=== PATIENT | male | born 1990 | race Two or more races ===

== ENCOUNTER 2018-03-08 14:42 | Emergency (ER) | payer OTHER ==
[~2018-03-08] VITALS: Ht 154.9 cm; Wt 72.0 kg
[2018-03-08] MEDS ORDERED: KETOROLAC 30 MG/1 ML IVPush ONE (15:00)
[2018-03-08] MEDS ORDERED: ONDANSETRON ODT 4 MG PO ONE (15:00)
[2018-03-08] MEDS ORDERED: ONDANSETRON ODT 4 MG ONE (15:30)
[2018-03-08] MEDS ORDERED: KETOROLAC 30 MG/1 ML ONE (15:30)
[2018-03-08 15:38] LABS: MICROSCOPIC AUTO
[2018-03-08 15:39] LABS: CULTURE INDICATED? YES
[2018-03-08] MEDS ORDERED: MORPHINE SULFATE 4 MG/ML, 1ML ONE ×2 (15:39→16:47)
[2018-03-08] MEDS: MORPHINE SULFATE 4 MG/ML, 1ML IVPush PRN ×2 (15:40→16:49)
[2018-03-08 15:46] LABS: BASOPHILS # (AUTO) 0.03 x10^3/uL (0-0.1); BASOPHILS % (AUTO) 0 % (0-1); EOSINOPHILS # (AUTO) 0.02 x10^3/uL (0-0.4); EOSINOPHILS % (AUTO) 0 % (1-7); LYMPHOCYTES # (AUTO) 2.15 x10^3/uL (1-3.4); LYMPHOCYTES % (AUTO) 12 % (22-44); MD NO; MEAN CORPUSCULAR HEMOGLOBIN 30.7 pg (27.5-34.5); MEAN CORPUSCULAR HGB CONC 34.4 g/dL (33.2-36.2); MEAN CORPUSCULAR VOLUME 89.4 fL (81-97); MEAN PLATELET VOLUME 9.3 fL (7.4-10.4); MONOCYTES # (AUTO) 1.05 x10^3/uL (0.2-0.8); MONOCYTES % (AUTO) 6 % (2-9); NEUTROPHILS # (AUTO) 14.49 x10^3/uL (1.8-6.8); NEUTROPHILS % (AUTO) 82 % (42-75); PLATELET COUNT 266 x10^3/uL (130-400); RED BLOOD COUNT 5.42 x10^6/uL (4.38-5.82); RED CELL DISTRIBUTION WIDTH 12.2 % (9.4-14.8)
[2018-03-08 15:55] LABS: ALBUMIN 4.4 g/dL (3.4-5.0); ANION GAP 9 mmol/L (5-15); CALCIUM 8.9 mg/dL (8.5-10.1); CHLORIDE 107 mmol/L (98-107); CREATININE 1.29 mg/dL (0.7-1.3)
[2018-03-08 17:36] VITALS: BP 111/70
== END 2018-03-08 17:38 | disposition home or self-care (01) ==
LOC: ED 17:30
DX: N13.2 Hydronephrosis with renal and ureteral calculous obstruction (principal); R31.9 Hematuria, unspecified; D72.829 Elevated white blood cell count, unspecified
CPT/HCPCS: 36415; 74176; 80048; 81001; 82040; 85025; 87086; 96374; 96375; 96376; 99285; J1885; Q0162